=== PATIENT | male | born 1930 | race Caucasian/White ===

== ENCOUNTER 2018-11-15 16:49 | Inpatient (IN) | payer MEDICARE, MEDICAID ==
[~2018-11-15] VITALS: Ht 172.7 cm; Wt 70.2 kg
[2018-11-15] MEDS ORDERED: SODIUM CHLORIDE 0.9%, 500ML IVBOLUS ONE (17:00)
--- NOTE | 2018-11-15 17:01 | NUR ---
PT INCONTINENT OF URINE, PT OREIENTED X2 UNSURE OF BASELINE. PT RESPONDING APPROPRIATELY TO QUESTIONS. ERMD IN TO EVAL PT. 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
--- NOTE | 2018-11-15 17:21 | NUR ---
ZANDER COLLECTED AND SENT. FOUNDRY MELT SUPERVISOR BALJEET ORDERED LABS.
--- NOTE | 2018-11-15 17:30 | NUR ---
PT TAKEN TO CT
[2018-11-15 17:34] LABS: MICROSCOPIC AUTO
[2018-11-15 17:37] LABS: CULTURE INDICATED? NO
[2018-11-15 17:41] LABS: ALBUMIN 3.5 g/dL (3.4-5.0); ANION GAP 9 mmol/L (5-15); CALCIUM 8.6 mg/dL (8.5-10.1); CHLORIDE 113 mmol/L (98-107); CREATININE 1.32 mg/dL (0.7-1.3)
--- NOTE | 2018-11-15 17:43 | NUR ---
PT BACK FROM CT, NAD NOTED
[2018-11-15 17:58] LABS: BASOPHILS # (AUTO) 0.03 x10^3/uL (0-0.1); BASOPHILS % (AUTO) 0 % (0-1); EOSINOPHILS # (AUTO) 0.19 x10^3/uL (0-0.4); EOSINOPHILS % (AUTO) 2 % (1-7); LYMPHOCYTES # (AUTO) 1.27 x10^3/uL (1-3.4); LYMPHOCYTES % (AUTO) 15 % (22-44); MD SCAN; MEAN CORPUSCULAR HEMOGLOBIN 30.7 pg (27.5-34.5); MEAN CORPUSCULAR HGB CONC 33.8 g/dL (33.2-36.2); MEAN CORPUSCULAR VOLUME 90.7 fL (81-97); MEAN PLATELET VOLUME 9.8 fL (7.4-10.4); MONOCYTES % (AUTO) 7 % (2-9); NEUTROPHILS # (AUTO) 6.37 x10^3/uL (1.8-6.8); NEUTROPHILS % (AUTO) 75 % (42-75); PLATELET COUNT 108 x10^3/uL (130-400); RED BLOOD COUNT 4.05 x10^6/uL (4.38-5.82); RED CELL DISTRIBUTION WIDTH 14.5 % (9.4-14.8)
--- NOTE | 2018-11-15 17:59 | NUR ---
Pt's cordero, wallet & check card documented with security. Sent with officer for placement in safe, copy placed on chart. Pt was unable to sign due to weakness.
--- NOTE | 2018-11-15 18:22 | NUR ---
PT WITH ADMIT ORDERS, AWAITING A BED. NAD
--- NOTE | 2018-11-15 18:43 | NUR ---
REPORT GIVEN TO RECDODIE GIRALDO.
[2018-11-15 19:44] VITALS: BP 192/75
[2018-11-15] MEDS ORDERED: SODIUM CHLORIDE 0.9% 1,000 ML IV SCH (21:06)
[2018-11-15] MEDS ORDERED: LIDODERM 5% PATCH TD PRN (21:30)
[2018-11-15] MEDS ORDERED: ACETAMINOPHEN 325 MG TABLET PO PRN (21:30)
[2018-11-15] MEDS ORDERED: TEMAZEPAM 15 MG CAPSULE PO PRN (21:30)
[2018-11-15] MEDS: PLEASE ENTER ALLERGIES MC SCH (21:30)
[2018-11-15] MEDS ORDERED: IBUPROFEN 600 MG TABLET PO PRN (21:30)
[2018-11-15] MEDS ORDERED: DOCUSATE 100 MG CAPSULE PO PRN (21:30)
[2018-11-15 22:14] VITALS: BP_SYST 192
[2018-11-16 01:06] VITALS: BP 206/68
[2018-11-16] MEDS: PLEASE ENTER ALLERGIES MC SCH ×8 (01:30→10:30)
[2018-11-16] MEDS ORDERED: LABETALOL 5MG/ML, 20ML IVPush PRN (01:30)
[2018-11-16] MEDS ORDERED: hydrALAzine 20 MG/ML, 1ML IVPush PRN (01:30)
[2018-11-16 05:19] LABS: BASOPHILS # (AUTO) 0.04 x10^3/uL (0-0.1); BASOPHILS % (AUTO) 1 % (0-1); EOSINOPHILS # (AUTO) 0.16 x10^3/uL (0-0.4); EOSINOPHILS % (AUTO) 2 % (1-7); LYMPHOCYTES # (AUTO) 1.87 x10^3/uL (1-3.4); LYMPHOCYTES % (AUTO) 23 % (22-44); MD NO; MEAN CORPUSCULAR HEMOGLOBIN 29.8 pg (27.5-34.5); MEAN CORPUSCULAR VOLUME 90.2 fL (81-97); MEAN PLATELET VOLUME 11.8 fL (7.4-10.4); MONOCYTES % (AUTO) 7 % (2-9); NEUTROPHILS # (AUTO) 5.47 x10^3/uL (1.8-6.8); NEUTROPHILS % (AUTO) 67 % (42-75); PLATELET COUNT 113 x10^3/uL (130-400); RED CELL DISTRIBUTION WIDTH 14.1 % (9.4-14.8)
[2018-11-16 05:27] LABS: ANION GAP 9 mmol/L (5-15); CALCIUM 8.4 mg/dL (8.5-10.1); CHLORIDE 113 mmol/L (98-107)
[2018-11-16] MEDS: INSULIN LISPRO 100 UNITS/ML, PEN SQ-INSULIN SCH ×4 (07:00→21:01)
[2018-11-16 07:42] VITALS: BP 157/75
[2018-11-16 16:00] VITALS: BP 154/80
[2018-11-16 19:12] VITALS: BP 175/86
[2018-11-17 01:14] VITALS: BP 177/74
[2018-11-17] MEDS ORDERED: LOSARTAN 25MG TABLET PO ONE (02:00)
[2018-11-17 04:45] VITALS: BP 167/74
[2018-11-17] MEDS: INSULIN LISPRO 100 UNITS/ML, PEN SQ-INSULIN SCH ×2 (07:36→11:00)
[2018-11-17 07:53] VITALS: BP 182/71
[2018-11-17 10:12] VITALS: BP 134/58
[2018-11-17 12:48] VITALS: BP 178/73
== END 2018-11-17 15:13 | disposition home or self-care (01) | DRG 88 ==
LOC: ED 18:09 → EDIP 18:10 → ED 18:26 → 3NE 19:15
PROVIDERS: ADMIT Family Medicine; ATTEND Family Medicine
PROC: 0T9B70Z Drainage of Bladder with Drainage Device, Via Natural or Artificial Opening (ICD-10-PCS; principal; 2018-11-15)
DX: S06.0X0A Concussion without loss of consciousness, initial encounter (principal); N17.0 Acute kidney failure with tubular necrosis; L97.819 Non-pressure chronic ulcer of other part of right lower leg with unspecified severity; S00.93XA Contusion of unspecified part of head, initial encounter; E11.51 Type 2 diabetes mellitus with diabetic peripheral angiopathy without gangrene; W05.0XXA Fall from non-moving wheelchair, initial encounter; E11.622 Type 2 diabetes mellitus with other skin ulcer; E11.65 Type 2 diabetes mellitus with hyperglycemia; I16.0 Hypertensive urgency; I10 Essential (primary) hypertension; S00.81XA Abrasion of other part of head, initial encounter; Z89.512 Acquired absence of left leg below knee; Y92.89 Other specified places as the place of occurrence of the external cause
CPT/HCPCS: 36415; 70450; 72125; 80048; 80307; 81001; 82040; 82962; 85025; 99285; G0378; J0360; J1815; J7030; J7040